=== PATIENT | male | born 1995 | race Caucasian/White ===

== ENCOUNTER 2018-06-11 01:29 | Emergency (ER) | payer SELFPAY ==
[~2018-06-11] VITALS: Ht 195.6 cm; Wt 86.4 kg
[2018-06-11 01:34] VITALS: BP 138/93; PULSE 102; TEMP 97.6
[2018-06-11] MEDS ORDERED: OXYCONTIN40 MG PO (01:38)
== END 2018-06-11 03:00 | disposition home or self-care (01) ==
LOC: COL.ER 01:29
DX: S09.90XA Unspecified injury of head, initial encounter (principal); F17.210 Nicotine dependence, cigarettes, uncomplicated; Z88.0 Allergy status to penicillin; Z90.89 Acquired absence of other organs; W22.8XXA Striking against or struck by other objects, initial encounter; Y92.481 Parking lot as the place of occurrence of the external cause